=== PATIENT | female | born 1970 | race Caucasian/White ===

== ENCOUNTER 2021-01-12 14:54 | Emergency (ER) | payer BC ==
[~2021-01-12 14:54] MED LIST: Iopamidol-370 76% 500 ML 1 ML ONE
[2021-01-12] MEDS ORDERED: Boostrix 0.5 ML (Tdap) VIAL ONE (14:58)
[2021-01-12] MEDS ORDERED: Fentanyl 100 MCG/2 ML VIAL ONE ×2 (14:58→15:48)
--- NOTE | 2021-01-12 15:21 | CT ---
CT Brain WO Con History: Fall Comparison: None. Findings: No acute hemorrhage or infarct. No midline shift or mass effect. Ventricular size and extra -axial CSF spaces are normal. Calvarium is intact. Paranasal sinuses and mastoids are clear. Incomplete fusion posterior arch of C1 , a congenital finding. Impression: No acute intracranial abnormality.
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
[2021-01-12 15:55] LABS: #Basophils 0.1 thou/uL (0.0-0.2); #Eosinphils 0.1 thou/uL (0.0-0.7); #Lymphocytes 1.7 thou/uL (1.20-3.40); #Monocytes 0.6 thou/uL (0.11-0.59); #Neutrophils 9.1 thou/uL (1.40-6.50); %Basophils 0.7 % (0.0-1.0); %Eosinophils 0.5 % (0.0-10.0); %Lymphocytes 14.4 % (21.0-51.0); %Monocytes 5.4 % (0.0-10.0); %Neutrophils 78.9 % (42.0-75.0); Hemoglobin 14.5 g/dL (12.0-16.0); Mean Corpuscular HGB CONC 33.4 g/dL (32.0-36.0); Mean Corpuscular Hemoglobin 29.6 pg (27.0-31.0); Mean Corpuscular Volume 88.5 fL (78.0-98.0); Mean Platelet Volume 6.4 fL (7.4-10.4); Platelet Count 291 thou/uL (130-400); RBC Distribution Width 11.1 % (11.5-14.5); Red Blood Cell (RBC) Count 4.91 mill/uL (4.20-5.40); White Blood Cell (WBC) Count 11.6 thou/uL (4.8-10.8)
[2021-01-12 16:01] LABS: PTT 18.3 sec (22.9-36.1); Prothrombin Time 13.1 sec (12.0-14.7)
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
[2021-01-12 16:17] LABS: Phosphorus 2.9 mg/dL (2.3-4.7)
[2021-01-12 16:19] LABS: ALT (SGPT) 21 U/L (8-55); AST (SGOT) 36 U/L (5-34); Albumin 4.5 g/dL (3.5-5.0); Alkaline Phosphatase 70 U/L (40-110); Anion Gap 17 mmol/L (10-20); BUN (Urea Nitrogen) 25 mg/dL (9.8-20.1); Bilirubin, Total 0.4 mg/dL (0.2-1.2); Calc. Creatinine Clearance 0 mL/min (70-130); Calcium 9.3 mg/dL (7.8-10.44); Carbon Dioxide 24 mmol/L (22-29); Chloride 101 mmol/L (98-107); Globulin 2.9 g/dL (2.4-3.5); Glucose 89 mg/dL (70-105); Lipase 23 U/L (8-78); Potassium 3.8 mmol/L (3.5-5.1); Protein, Total 7.4 g/dL (6.0-8.3); Sodium 138 mmol/L (136-145)
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
[2021-01-12] MEDS ORDERED: Morphine 4 MG/ML VIAL ONE ×2 (16:54→18:42)
[2021-01-12] MEDS ORDERED: Ondansetron PF 4 MG/2 ML Vial ONE (16:55)
[2021-01-12] MEDS ORDERED: Ketorolac Tromethamine 30 MG/ML VIAL ONE (16:55)
== END 2021-01-12 19:20 | disposition home or self-care (01) ==
LOC: ERS 14:54
DX: S32.021A Stable burst fracture of second lumbar vertebra, initial encounter for closed fracture (principal); S32.031A Stable burst fracture of third lumbar vertebra, initial encounter for closed fracture; S52.502A Unspecified fracture of the lower end of left radius, initial encounter for closed fracture; S00.81XA Abrasion of other part of head, initial encounter; W11.XXXA Fall on and from ladder, initial encounter; Z23 Encounter for immunization
CPT/HCPCS: 70450; 71045; 71260; 72125; 74177; 80053; 83605; 83690; 83735; 84100; 85025; 85610; 85730; 86850; 86900; 86901; 90471; 90715; 93005; 96374; 96375; 96376; G0390; J1885; J2270; J2405; J3010; Q9967

== ENCOUNTER 2021-01-24 09:17 | Outpatient (CLI) | payer BC | END 2021-01-24 09:18 | disposition home or self-care (01) | LOC: TBSIIMAG 09:17 | PROVIDERS: ATTEND Neurological Surgery | DX: S32.020A Wedge compression fracture of second lumbar vertebra, initial encounter for closed fracture (principal); S32.030A Wedge compression fracture of third lumbar vertebra, initial encounter for closed fracture | CPT/HCPCS: 72100 ==

== ENCOUNTER 2021-03-07 08:15 | Outpatient (CLI) | payer BC | END 2021-03-07 08:16 | disposition home or self-care (01) | LOC: TBSIIMAG 08:15 | PROVIDERS: ATTEND Neurological Surgery | DX: S32.030A Wedge compression fracture of third lumbar vertebra, initial encounter for closed fracture (principal); S32.020A Wedge compression fracture of second lumbar vertebra, initial encounter for closed fracture | CPT/HCPCS: 72100 ==